=== PATIENT | male | born 1970 | race Two or more races ===

== ENCOUNTER 2022-11-12 14:16 | Emergency (ER) | payer MEDICAID, SELFPAY ==
--- NOTE | ~2022-11-12 | XR_ITS ---
EXAMINATION: XR CHEST CLINICAL INFORMATION: SOB. COMPARISON: None TECHNIQUE: Frontal view of the chest was obtained. FINDINGS: No significant abnormality is noted involving the heart, lungs, mediastinum, bony thorax or soft tissues. XR/XR chest 1V IMPRESSION: Unremarkable chest examination.
[2022-11-12 14:32] VITALS: BP 136/75; PULSE 72; RESP 18; TEMP 36.9; O2SAT 97; BMI 32.6
--- NOTE | 2022-11-12 14:35 | ED.DIZZY ---
HPI - Dizziness General Chief Complaint: Dizziness Stated Complaint: High Blood Pressure Related Data Previous Rx's Medication Instructions Recorded lisinopril 20 mg tablet 20 mg PO DAILY #90 tabs 11/14/22 Allergies Allergy/AdvReac Type Severity Reaction Status Date / Time No Known Allergies Allergy Verified 11/12/22 14:36 [facility] Social History Social History Advance Directives: No Physical Exam Vital Signs: Vital Signs: Last Vital Signs Temp 98.4 F 11/12/22 14:32 Pulse 72 11/12/22 14:32 Resp 18 11/12/22 14:32 BP 136/75 11/12/22 14:32 Pulse Ox 97 11/12/22 14:32 O2 Del Method 11/12/22 14:32 BMI result Body Mass Index 32.6 Course Course Course Narrative: JOSE--52-year-old male with past medical history of hypertension presenting to the ED complaining of intermittent dizziness described as feeling like the room is getting smaller x today. Admits to associated SOB. Admits symptoms resolve when sitting still, occurr when lying flat, denies at present. Denies CP, headache Blood pressure 136/75 and triaged admits to taking his lisinopril this morning. Nontoxic appearing, ending with steady gait EKG, labs, UA, IVF, CXR, orthostatics ordered Medical Decision Making Lab Data 11/12/22 15:21 11/12/22 15:21 Labs: Lab Results 11/12/22 11/12/22 11/12/22 Range/Units 15:21 15:21 15:21 WBC 8.5 (4.8-10.8) X10*3/uL RBC 4.85 (4.60-5.80) X10*6/uL Hgb 14.8 (14.0-18.0) g/dl Hct 44.7 (42.0-52.0) % MCV 92.2 (80.0-98.0) fL MCH 30.5 (27.0-33.0) pg MCHC 33.1 (31.0-36.0) g/dl RDW 13.4 (11.0-16.0) % Plt Count 193 (160-400) X10*3/uL MPV 10.3 (9.4-12.4) fL Immature Gran % (Auto) 0.4 (0.0-0.4) % Neut % (Auto) 65.2 (45-73) % Lymph % (Auto) 16.7 L (20-40) % [place] % (Auto) 11.3 H (2-11) % Eos % (Auto) 5.9 H (0-4) % Baso % (Auto) 0.5 (0-2) % Lymph # (Auto) 1.4 (1.2-4.9) X10*3/uL [place] # (Auto) 1.0 (0.1-1.2) X10*3/uL Eos # (Auto) 0.5 H (0.0-0.4) X10*3/uL Baso # (Auto) 0.0 (0.0-0.2) X10*3/uL Abs Immat Gran (auto) 0.03 (0.00-0.03) X10*3/uL Absolute Neuts (auto) 5.5 (2.0-8.3) x10*3/uL Absolute Nucleated RBC 0.000 (0.0-0.012) X10*3/uL Nucleated RBC % (auto) 0.0 (0.0-0.2) /100WBC Sodium 137 (135-145) mmol/L Potassium 4.4 (3.3-5.1) mmol/L Chloride 105 (96-108) mmol/L Carbon Dioxide 26 (22-29) mmol/L Anion Gap 10 L (12-20) BUN 16 (9-16) mg/dL Creatinine 1.12 (0.5-1.4) mg/dL Estim Creat Clear Calc 87.3 Estimated GFR > 60 Random Glucose 84 (60-115) mg/dL Calcium 9.1 (8.4-10.2) mg/dL Magnesium 2.2 (1.6-2.6) mg/dL Total Bilirubin 0.4 (0.0-1.0) mg/dL Direct Bilirubin < 0.2 (0.0-0.5) mg/dL AST 24 (5-37) U/L ALT 19 (0-40) U/L Alkaline Phosphatase 68 (39-117) U/L Troponin I High Sens < 3.5 (<3.5-35.0) ng/L Total Protein 7.3 (6.5-8.0) g/dL Albumin 4.4 (3.5-5.0) g/dL Urine Color Urine Appearance Urine pH (5.0-9.0) Ur Specific [place] (1.005-1.025) Urine Protein (Neg-Trace) mg/dL Urine Glucose (UA) (Negative) mg/dL Urine Ketones (Negative) mg/dL Urine Blood (Negative) Urine Nitrite (Negative) Ur Leukocyte Esterase (Negative) COVID-19 (SANTANA) (Negative) COVID-19 Clin Com Influenza Type A (JUSTIN) (Negative) Influenza Type B (JUSTIN) (Negative) Influenza A & B Note 11/12/22 11/12/22 11/12/22 Range/Units 15:21 15:21 15:23 WBC (4.8-10.8) X10*3/uL RBC (4.60-5.80) X10*6/uL Hgb (14.0-18.0) g/dl Hct (42.0-52.0) % MCV (80.0-98.0) fL MCH (27.0-33.0) pg MCHC (31.0-36.0) g/dl RDW (11.0-16.0) % Plt Count (160-400) X10*3/uL MPV (9.4-12.4) fL Immature Gran % (Auto) (0.0-0.4) % Neut % (Auto) (45-73) % Lymph % (Auto) (20-40) % [place] % (Auto) (2-11) % Eos % (Auto) (0-4) % Baso % (Auto) (0-2) % Lymph # (Auto) (1.2-4.9) X10*3/uL [place] # (Auto) (0.1-1.2) X10*3/uL Eos # (Auto) (0.0-0.4) X10*3/uL Baso # (Auto) (0.0-0.2) X10*3/uL Abs Immat Gran (auto) (0.00-0.03) X10*3/uL Absolute Neuts (auto) (2.0-8.3) x10*3/uL Absolute Nucleated RBC (0.0-0.012) X10*3/uL Nucleated RBC % (auto) (0.0-0.2) /100WBC Sodium (135-145) mmol/L Potassium (3.3-5.1) mmol/L Chloride (96-108) mmol/L Carbon Dioxide (22-29) mmol/L Anion Gap (12-20) BUN (9-16) mg/dL Creatinine (0.5-1.4) mg/dL Estim Creat Clear Calc Estimated GFR Random Glucose (60-115) mg/dL Calcium (8.4-10.2) mg/dL Magnesium (1.6-2.6) mg/dL Total Bilirubin (0.0-1.0) mg/dL Direct Bilirubin (0.0-0.5) mg/dL AST (5-37) U/L ALT (0-40) U/L Alkaline Phosphatase (39-117) U/L Troponin I High Sens (<3.5-35.0) ng/L Total Protein (6.5-8.0) g/dL Albumin (3.5-5.0) g/dL Urine Color Yellow Urine Appearance Clear Urine pH 6.0 (5.0-9.0) Ur Specific [place] 1.015 (1.005-1.025) Urine Protein Negative (Neg-Trace) mg/dL Urine Glucose (UA) Negative (Negative) mg/dL Urine Ketones Negative (Negative) mg/dL Urine Blood Negative (Negative) Urine Nitrite Negative (Negative) Ur Leukocyte Esterase Negative (Negative) COVID-19 (SANTANA) Negative (Negative) COVID-19 Clin Com See Note Influenza Type A (JUSTIN) Negative (Negative) Influenza Type B (JUSTIN) Negative (Negative) Influenza A & B Note See Note Discharge Plan Discharge Clinical Impression: Dizziness Patient Disposition: Elopement Prescriptions: No Action lisinopril 20 mg tablet 20 mg PO DAILY Qty: 90 0RF Interventions: LWBS Worksheet Last Done: 11/12/22 21:14 Discharge Date/Time: 11/12/22 21:28
--- NOTE | 2022-11-12 14:36 | ECG_ITS ---
Test Reason : DIZZY Blood Pressure : / mmHG Vent. Rate : 067 BPM Atrial Rate : 067 BPM P-R Int : 140 ms QRS Dur : 086 ms QT Int : 386 ms P-R-T Axes : 017 015 002 degrees QTc Int : 407 ms Normal sinus rhythm Normal ECG No previous ECGs available Referred By: Araceli Red Electronically Signed By:ZITA ROD
[2022-11-12 15:28] LABS: MANUAL DIFF FLAG NO
[2022-11-12 15:31] LABS: Appearance Urine Clear; Color Urine Yellow; Glucose Urine UA Negative (Negative); Leukocyte Esterase Urine Negative (Negative); Nitrite Urine Negative (Negative); Specific Gravity - Urine 1.015 (1.005-1.025); Urine Blood Negative (Negative); Urine Ketones Negative (Negative); Urine Protein Negative (Neg-Trace)
[2022-11-12 15:42] LABS: Basophils Percent Auto 0.5 % (0-2); Eosinophils Absolute Auto 0.5 X10*3/uL (0.0-0.4); Eosinophils Percent Auto 5.9 % (0-4); Hematocrit 44.7 % (42.0-52.0); Hemoglobin 14.8 g/dl (14.0-18.0); Imm Gran Abs Auto 0.03 X10*3/uL (0.00-0.03); Imm Gran Pct Auto 0.4 % (0.0-0.4); Lymphocytes Absolute Auto 1.4 X10*3/uL (1.2-4.9); Lymphocytes Percent Auto 16.7 % (20-40); Mean Corpuscular HGB Conc 33.1 g/dl (31.0-36.0); Mean Corpuscular Hemoglobin 30.5 pg (27.0-33.0); Mean Corpuscular Volume 92.2 fL (80.0-98.0); Mean Platelet Volume 10.3 fL (9.4-12.4); Monocytes Percent Auto 11.3 % (2-11); Neutrophils Absolute Auto 5.5 x10*3/uL (2.0-8.3); Neutrophils Percent Auto 65.2 % (45-73); Platelet Count 193 X10*3/uL (160-400); Red Blood Count 4.85 X10*6/uL (4.60-5.80); Red Cell Distribution Width 13.4 % (11.0-16.0); White Blood Count 8.5 X10*3/uL (4.8-10.8)
[2022-11-12 15:50] LABS: COVID-19 Test Negative (Negative); IDNOW Serial# BCCEAD1C
[2022-11-12 15:51] LABS: IDNOW Serial# 9DB6401D; Influenza A Negative (Negative); Influenza B2 Negative (Negative)
[2022-11-12 16:12] LABS: Alanine Aminotransferase 19 U/L (0-40); Albumin Level 4.4 g/dL (3.5-5.0); Alkaline Phosphatase 68 U/L (39-117); Anion Gap 10 (12-20); Aspartate Amino Transferase 24 U/L (5-37); Bilirubin Direct < 0.2 mg/dL (0.0-0.5); Bilirubin Total 0.4 mg/dL (0.0-1.0); Blood Urea Nitrogen 16 mg/dL (9-16); Calcium 9.1 mg/dL (8.4-10.2); Carbon Dioxide 26 mmol/L (22-29); Chloride 105 mmol/L (96-108); Creatinine Clr Calc Pharmacy 87.3; Estimated Glomerular Filt Rate > 60; Glucose Random 84 mg/dL (60-115); Magnesium 2.2 mg/dL (1.6-2.6); Potassium 4.4 mmol/L (3.3-5.1); Sodium 137 mmol/L (135-145); Total Protein 7.3 g/dL (6.5-8.0)
[2022-11-12 16:21] LABS: Troponin-I High Sensitivity < 3.5 ng/L (<3.5-35.0)
== END 2022-11-12 21:28 | disposition left against medical advice (07) ==
LOC: HO.ED 21:17
PROVIDERS: Physician Assistant; Emergency Provider Emergency Medicine
DX: R42 Dizziness and giddiness (principal); I10 Essential (primary) hypertension; Z20.822 Contact with and (suspected) exposure to COVID-19; Z79.899 Other long term (current) drug therapy
CPT/HCPCS: 36415; 71045; 80048; 80076; 81003; 83735; 84484; 85025; 87502; 87635; 93005; 99283

== ENCOUNTER 2022-11-14 10:52 | Emergency (ER) | payer MEDICAID, SELFPAY ==
[2022-11-14 11:45] VITALS: BP 149/105; PULSE 83; RESP 20; TEMP 36.5; O2SAT 95; BMI 35.4
--- NOTE | 2022-11-14 11:45 | ED_ITS ---
HPI - General Adult General Chief complaint: General Medical <Cecily Lai CNP - Last Filed: 11/14/22 11:58> Stated complaint: high bp <Cecily Lai CNP - Last Filed: 11/14/22 11:58> Time Seen by Provider: 11/14/22 12:12 <Cecily Lai CNP - Last Filed: 11/14/22 11:58> Source: patient <MERCY Bolton - Last Filed: 11/14/22 17:16> Mode of arrival: ambulatory <MERCY Bolton - Last Filed: 11/14/22 17:16> Limitations: no limitations <MERCY Bolton Last Filed: 11/14/22 17:16> History of Present Illness HPI narrative: Patient is a 52 year old assigned male at with a history of HTN presenting to the emergency department today requesting a refill of his HTN medication. Patient states that he just moved from [facility] and needs a refill of his HTN medication. Patient states that he takes Lisinopril 20mg. Patient states that he had one episode of dizziness this morning but it resolved quickly. Patient denies any dizziness, lightheadedness, abdominal pain, nausea, vomiting, fever, chills, blurry vision, double vision, loss of vision, chest pain, difficulty breathing, shortness of breath, back pain, night sweats, pain with urination, increased urinary frequency, increased urinary urgency, blood in his urine or stool, syncope or a near syncopal episode, recent trauma or falls, bowel incontinence, bladder incontinence, bowel retention, bladder retention, or any other complaints at this time. <MERCY Bolton - Last Filed: 11/14/22 17:16> Severity: mild <MERCY Bolton - Last Filed: 11/14/22 17:16> Severity scale (1-10): 1 <MERCY Bolton - Last Filed: 11/14/22 17:16> Relieving factors: none <MERCY Bolton Last Filed: 11/14/22 17:16> Exacerbating factors: none <MERCY Bolton Last Filed: 11/14/22 17:16> Associated symptoms: denies other symptoms <MERCY Bolton - Last Filed: 11/14/22 17:16> Treatments prior to arrival: none <MERCY Bolton Last Filed: 11/14/22 17:16> Related Data Home medications: Previous Rx's Medication Instructions Recorded lisinopril 20 mg tablet 20 mg PO DAILY #90 tabs 11/14/22 <Cecily Lai CNP - Last Filed: 11/14/22 11:58> Allergies/adverse reactions: Allergies Allergy/AdvReac Type Severity Reaction Status Date / Time No Known Allergies Allergy Verified 11/12/22 14:36 <Cecily Lai CNP - Last Filed: 11/14/22 11:58> Review of Systems Constitutional: Constitutional: Reports no additional constitutional complaints, Denies chills, Denies fever(s) and Denies night sweats <MERCY Bolton Last Filed: 11/14/22 17:16> Eyes: Eyes: Reports no additional eye complaints, Denies blurry vision, Denies change in vision, Denies diplopia, Denies eye discharge, Denies loss of vision and Denies eye pain <MERCY Bolton - Last Filed: 11/14/22 17:16> ENT: Denies dizziness <MERCY Bolton - Last Filed: 11/14/22 17:16> Cardiovascular: Cardiovascular: Reports no additional cardiovascular complaints, Denies chest pain, Denies lightheadedness, Denies Loss of Consciousness and Denies dyspnea <MERCY Bolton - Last Filed: 11/14/22 17:16> Respiratory: Respiratory: Reports no additional respiratory complaints and Denies dyspnea <MERCY Bolton - Last Filed: 11/14/22 17:16> Gastrointestinal: Gastrointestinal: Reports no additional gastrointestinal complaints, Denies abdominal pain, Denies melena, Denies hematochezia, Denies change in bowel habits and Denies change in stool character <MERCY Bolton - Last Filed: 11/14/22 17:16> Genitourinary: Genitourinary: Reports no additional male genitourinary complaints, Denies hematuria, Denies oliguria, Denies difficulty urinating, Denies dysuria, Denies urinary frequency, Denies urinary hesitancy, Denies urinary incontinence and Denies urinary urgency <MERCY Bolton - Last Filed: 11/14/22 17:16> Musculoskeletal: Musculoskeletal: Reports no additional musculoskeletal complaints, Denies numbness and Denies tingling <MERCY Bolton - Last Filed: 11/14/22 17:16> Neurologic: Denies dizziness, Denies loss of vision, Denies numbness and Denies tingling <MERCY Bolton - Last Filed: 11/14/22 17:16> Psychiatric: Psychiatric: Reports no additional psychiatric complaints <MERCY Bolton - Last Filed: 11/14/22 17:16> Endocrine: Endocrine: Reports no additional endocrine complaints <MERCY Bolton - Last Filed: 11/14/22 17:16> Hematologic/Lymphatic: Hematologic/Lymphatic: Reports no additional hematologic/lymphatic complaints <MERCY Bolton - Last Filed: 11/14/22 17:16> Allergic/Immunologic: Allergic/Immunologic: Reports no additional allergic/immunologic complaints <MERCY Bolton - Last Filed: 11/14/22 17:16> COUNT INCLUDES THE [facility] Past Medical History Attestation statement: The following information was validated with the patient. <MERCY Bolton - Last Filed: 11/14/22 17:16> Source: old records reviewed and nursing notes reviewed <MECRY Bolton - Last Filed: 11/14/22 17:16> Social History Social History: Social History Advance Directives: No <Cecily Lai CNP - Last Filed: 11/14/22 11:58> Physical Exam ED Vital Signs: Vital Signs - 24 hr 11/14/22 11:45 Temperature 97.7 F Pulse Rate 83 Respiratory Rate 20 Blood Pressure 149/105 H Pulse Oximetry 95 Oxygen Delivery Method Room Air BMI result Body Mass Index 35.4 <Cecily Lai CNP - Last Filed: 11/14/22 11:58> Vital Signs - 24 hr 11/14/22 11:45 Temperature 97.7 F Pulse Rate 83 Respiratory Rate 20 Blood Pressure 149/105 H Pulse Oximetry 95 Oxygen Delivery Method Room Air BMI result Body Mass Index 35.4 <MERCY Bolton - Last Filed: 11/14/22 17:16> Const General: cooperative, no acute distress, alert and awake <Shanna Crane PA - Last Filed: 11/14/22 17:16> Nutritional Appearance: well nourished <Shanna Crane PA - Last Filed: 11/14/22 17:16> Orientation/consciousness: patient oriented x3 <Shanna Crane PA - Last Filed: 11/14/22 17:16> Limitations: no limitations <Shanna Crane PA - Last Filed: 11/14/22 17:16> HENMT Head: Yes normal to inspection and Yes atraumatic <Shanna rCane PA - Last Filed: 11/14/22 17:16> Ears: hearing grossly normal bilaterally and external ears normal <Shanna Crane PA - Last Filed: 11/14/22 17:16> General nose exam: Normal external nose present, no nasal discharge noted and no epistaxis <Shanna Crane PA - Last Filed: 11/14/22 17:16> Face and sinus: Yes normal facial exam, No abrasion and No laceration <Shanna Crane PA - Last Filed: 11/14/22 17:16> Mouth: Normal oral and palatal mucosa present, no drooling and no muffled voice <Shanna Crane PA - Last Filed: 11/14/22 17:16> Eyes General: appearance normal, both eyes and all related structures <Shanna Crane PA - Last Filed: 11/14/22 17:16> Periorbital: periorbital findings normal <Shanna Crane PA - Last Filed: 11/14/22 17:16> Eyelids: Yes eyelids normal <Shanna Crane PA - Last Filed: 11/14/22 17:16> Conjunctivae: conjunctivae normal <Shanna Crane PA - Last Filed: 11/14/22 17:16> Pupils: Equal, round and reactive pupils present <Shanna Crane PA - Last Filed: 11/14/22 17:16> EOM: EOMs intact bilaterally <Shanna Crane PA - Last Filed: 11/14/22 17:16> Neck Neck: Yes normal visual inspection, Yes full ROM and Yes no lymphadenopathy <Shanna Crane PA - Last Filed: 11/14/22 17:16> Chest Chest palpation & inspection: normal inspection of the chest <Shanna Crane PA - Last Filed: 11/14/22 17:16> Resp Effort & Inspection: normal respiratory effort and able to speak in complete sentences <Shanna Crane PA - Last Filed: 11/14/22 17:16> Auscultation: clear to auscultation bilaterally <Shanna Crane PA - Last Filed: 11/14/22 17:16> Cardio Rate: regular rate <Shanna Crane PA - Last Filed: 11/14/22 17:16> Rhythm: regular rhythm <Shanna Crane PA - Last Filed: 11/14/22 17:16> GI Inspection: Yes normal to inspection <Shanna Crane PA - Last Filed: 11/14/22 17:16> Palpation (GI): Soft to palpation, not firm, nontender, no guarding and not rigid <Shanna Crane PA - Last Filed: 11/14/22 17:16> Neuro General: patient oriented x3 and moves all extremities <Shanna Craen PA - Last Filed: 11/14/22 17:16> Cranial nerves: Yes Equal, round and reactive pupils present <Shanna Crane PA - Last Filed: 11/14/22 17:16> Cognition (Neuro): normal cognition <Shanna Crane PA - Last Filed: 11/14/22 17:16> Motor exam (neuro): 5/5 motor strength present throughout <Shanna Crane PA - Last Filed: 11/14/22 17:16> Sensory Exam: Normal double simultaneous stimulation for sensation <Shanna Crane PA - Last Filed: 11/14/22 17:16> Coordination: [id number] test normal <Shanna Crane PA - Last Filed: 11/14/22 17:16> Extrem General: Yes normal to inspection, Yes full ROM and Yes capillary refill normal <Shanna Crane PA - Last Filed: 11/14/22 17:16> Psych Appearance: grossly normal <Shanna Mcmahanmarimar PA - Last Filed: 11/14/22 17:16> Mental Status: mental status grossly normal <MERCY Bolton - Last Filed: 11/14/22 17:16> Affect: normal affect <MERCY Bolton - Last Filed: 11/14/22 17:16> Attitude: cooperative <MERCY Bolton - Last Filed: 11/14/22 17:16> Thought process: Normal thought process present <MERCY Bolton - Last Filed: 11/14/22 17:16> Thought content: Normal thought content present <MERCY Bolton - Last Filed: 11/14/22 17:16> Insight: Good insight present (Psych) <MERCY Bolton - Last Filed: 11/14/22 17:16> Course Course Course Narrative: This is an RME: Additional HPI, ROS, PE not included below will be deferred to primary provider. Patient is a 52-year-old male who presents to the emergency department. He reports that he ran out of his blood pressure medication yesterday. States that he came here from [place] 2 months ago. Today he came to the financial assistance office at this hospital to have help with applying for insurance. He states he is prescribed lisinopril 20 mg daily denies any other medications. He expresses concern because this morning upon awakening he felt dizziness, feels dizziness with position changes, and shortness of breath on exertion which is atypical for him. Plan: EKG, Labs, orthostatic VS <Cecily Lai CNP - Last Filed: 11/14/22 11:58> Medical Decision Making Medical Decision Making MDM Narrative: Patient is a 52 year old assigned male at with a history of HTN presenting to the emergency department today requesting a medication refill. Patient's physical exam was unremarkable. Patient's blood work was unremarkable. Patient's EKG was unremarkable. Patient's chest x-ray from 11/12/2022 showed no acute process. I explained my physical exam findings as well as all test results to the patient. I answered all questions asked by the patient. I stressed the importance of the patient taking his medication as prescribed. I stressed the importance of the patient following up with his primary care provider. I stressed the importance of the patient returning to the emergency department immediately if his symptoms were to worsen or if he were to develop any dizziness, shortness of breath, difficulty breathing, chest pain, blurry vision, loss of vision, nausea, vomiting, abdominal pain, fever, chills, back pain, or any other complaints. Patient verbalized agreement and understanding with this treatment plan and discharge. <MERCY Bolton - Last Filed: 11/14/22 17:16> Differential Diagnosis Differential Diagnoses: The differential diagnosis associated with the presentation includes <MERCY Bolton - Last Filed: 11/14/22 17:16> HTN, medication refill, resolved dizziness <MERCY Bolton - Last Filed: 11/14/22 17:16> Lab Data MDM Lab Attestation statement: I reviewed the patient's lab results. <MERCY Bolton - Last Filed: 11/14/22 17:16> Result Diagrams: 11/14/22 12:30 11/14/22 12:30 <Cecily Lai CNP - Last Filed: 11/14/22 11:58> Labs: Lab Results 11/14/22 11/14/22 11/14/22 Range/Units 12:30 12:30 12:30 WBC 8.1 (4.8-10.8) X10*3/uL RBC 4.68 (4.60-5.80) X10*6/uL Hgb 14.4 (14.0-18.0) g/dl Hct 42.3 (42.0-52.0) % MCV 90.4 (80.0-98.0) fL MCH 30.8 (27.0-33.0) pg MCHC 34.0 (31.0-36.0) g/dl RDW 13.5 (11.0-16.0) % Plt Count 210 (160-400) X10*3/uL MPV 10.6 (9.4-12.4) fL Immature Gran % (Auto) 0.4 (0.0-0.4) % Neut % (Auto) 65.7 (45-73) % Lymph % (Auto) 18.8 L (20-40) % Mineral % (Auto) 10.4 (2-11) % Eos % (Auto) 4.3 H (0-4) % Baso % (Auto) 0.4 (0-2) % Lymph # (Auto) 1.5 (1.2-4.9) X10*3/uL [place] # (Auto) 0.8 (0.1-1.2) X10*3/uL Eos # (Auto) 0.4 (0.0-0.4) X10*3/uL Baso # (Auto) 0.0 (0.0-0.2) X10*3/uL Abs Immat Gran (auto) 0.03 (0.00-0.03) X10*3/uL Absolute Neuts (auto) 5.3 (2.0-8.3) x10*3/uL Absolute Nucleated RBC 0.000 (0.0-0.012) X10*3/uL Nucleated RBC % (auto) 0.0 (0.0-0.2) /100WBC Sodium 139 (135-145) mmol/L Potassium 4.4 (3.3-5.1) mmol/L Chloride 106 (96-108) mmol/L Carbon Dioxide 23 (22-29) mmol/L Anion Gap 14 (12-20) BUN 17 H (9-16) mg/dL Creatinine 1.03 (0.5-1.4) mg/dL Estim Creat Clear Calc 83.5 Estimated GFR > 60 Random Glucose 105 (60-115) mg/dL Calcium 9.1 (8.4-10.2) mg/dL Total Bilirubin 0.3 (0.0-1.0) mg/dL AST 26 (5-37) U/L ALT 24 (0-40) U/L Alkaline Phosphatase 70 (39-117) U/L Troponin I High Sens < 3.5 (<3.5-35.0) ng/L Total Protein 7.3 (6.5-8.0) g/dL Albumin 4.5 (3.5-5.0) g/dL <Cecily Lai CNP - Last Filed: 11/14/22 11:58> Lab Results 11/14/22 11/14/22 11/14/22 Range/Units 12:30 12:30 12:30 WBC 8.1 (4.8-10.8) X10*3/uL RBC 4.68 (4.60-5.80) X10*6/uL Hgb 14.4 (14.0-18.0) g/dl Hct 42.3 (42.0-52.0) % MCV 90.4 (80.0-98.0) fL MCH 30.8 (27.0-33.0) pg MCHC 34.0 (31.0-36.0) g/dl RDW 13.5 (11.0-16.0) % Plt Count 210 (160-400) X10*3/uL MPV 10.6 (9.4-12.4) fL Immature Gran % (Auto) 0.4 (0.0-0.4) % Neut % (Auto) 65.7 (45-73) % Lymph % (Auto) 18.8 L (20-40) % Mineral % (Auto) 10.4 (2-11) % Eos % (Auto) 4.3 H (0-4) % Baso % (Auto) 0.4 (0-2) % Lymph # (Auto) 1.5 (1.2-4.9) X10*3/uL Mineral # (Auto) 0.8 (0.1-1.2) X10*3/uL Eos # (Auto) 0.4 (0.0-0.4) X10*3/uL Baso # (Auto) 0.0 (0.0-0.2) X10*3/uL Abs Immat Gran (auto) 0.03 (0.00-0.03) X10*3/uL Absolute Neuts (auto) 5.3 (2.0-8.3) x10*3/uL Absolute Nucleated RBC 0.000 (0.0-0.012) X10*3/uL Nucleated RBC % (auto) 0.0 (0.0-0.2) /100WBC Sodium 139 (135-145) mmol/L Potassium 4.4 (3.3-5.1) mmol/L Chloride 106 (96-108) mmol/L Carbon Dioxide 23 (22-29) mmol/L Anion Gap 14 (12-20) BUN 17 H (9-16) mg/dL Creatinine 1.03 (0.5-1.4) mg/dL Estim Creat Clear Calc 83.5 Estimated GFR > 60 Random Glucose 105 (60-115) mg/dL Calcium 9.1 (8.4-10.2) mg/dL Total Bilirubin 0.3 (0.0-1.0) mg/dL AST 26 (5-37) U/L ALT 24 (0-40) U/L Alkaline Phosphatase 70 (39-117) U/L Troponin I High Sens < 3.5 (<3.5-35.0) ng/L Total Protein 7.3 (6.5-8.0) g/dL Albumin 4.5 (3.5-5.0) g/dL <MERCY Bolton Last Filed: 11/14/22 17:16> Independent Interpretation I performed an independent interpretation of an: EKG <MERCY Bolton Last Filed: 11/14/22 17:16> Interpretation: Vent. Rate: 083 BPM ? ? Atrial Rate: 083 BPM P-R Int: 150 ms? QRS Dur: 086 ms QT Int: 364 ms ? ? ? P-R-T Axes: 060 023 014 degrees QTc Int: 427 ms ? Normal sinus rhythm Normal ECG When compared with ECG of 12-NOV-2022 15:12, No significant change was found DD/ 1215 <MERCY Bolton - Last Filed: 11/14/22 17:16> Radiology Impression Discussion of test interpretation with radiology: I have reviewed the radiologist's reading. <MERCY Bolton - Last Filed: 11/14/22 17:16> Radiologist Impression: My interpretation is in agreement with the radiologist's impression of this imaging study. EXAMINATION: XR CHEST CLINICAL INFORMATION: SOB. COMPARISON: None TECHNIQUE: Frontal view of the chest was obtained. FINDINGS: No significant abnormality is noted involving the heart, lungs, mediastinum, bony thorax or soft tissues. XR/XR chest 1V IMPRESSION: Unremarkable chest examination. ? Dictated By: Law Clark MD Signed By: Electronically signed by Law Clark MD 11/12/22 1637 <MERCY Bolton - Last Filed: 11/14/22 17:16> Chronic Conditions Patient?s care impacted by: Hypertension <MERCY Bolton - Last Filed: 11/14/22 17:16> Social Determinants Patient?s care significantly limited by Social Determinants of Health including: Other Social Determinant of Health (patient recently moved from [facility]) <MERCY Bolton - Last Filed: 11/14/22 17:16> Discharge Plan Discharge Clinical Impression: Hypertension <Cecily Lai CNP - Last Filed: 11/14/22 11:58> Patient Disposition: Home, Self-Care <Cecily Lai CNP - Last Filed: 11/14/22 11:58> Instructions: Hypertension (ED) <Cecily Lai CNP - Last Filed: 11/14/22 11:58> Additional Instructions: Follow up with your primary care provider. Return to the emergency d epartment immediately if your symptoms worsen or if you develop any dizziness, shortness of breath, difficulty breathing, chest pain, blurry vision, loss of vision, nausea, vomiting, abdominal pain, fever, chills, back pain, or any other complaints. Carly un seguimiento con bhatia proveedor de atenci?n primaria. Regrese al departamento de emergencias de inmediato si ovidio s?ntomas empeoran o si presenta mareos, falta de aire, dificultad para respirar, dolor de pecho, visi?n borrosa, p?rdida de la visi?n, n?useas, v?mitos, dolor abdominal, fiebre, escalofr?os, dolor de espalda o cualquier otras quejas. <Cecily Lai CNP - Last Filed: 11/14/22 11:58> Prescriptions: New lisinopril 20 mg tablet 20 mg PO DAILY Qty: 90 0RF <Cecily Lai CNP - Last Filed: 11/14/22 11:58> Referrals: [facility] Family Medicine [Provider Group] (Call to establish and follow up with a primary care provider. Llame para establecer y hacer un seguimiento con un proveedor de atenci?n prima mary.) [facility] Primary Care, [place] [Provider Group] (Call to establish and follow up with a primary care provider. Llame para establecer y hacer un seguimiento con un proveedor de atenci?n primaria. ) [facility] Primary Care,See [Provider Group] (Call to establish and follow up with a primary care provider. Llame para establecer y hacer un seguimiento con un proveedor de atenci?n primaria. ) <Cecily Lai CNP - Last Filed: 11/14/22 11:58> Interventions: ED Discharge Assessment Last Done: 11/14/22 13:19 <Cecily Lai CNP - Last Filed: 11/14/22 11:58> Discharge Date/Time: 11/14/22 13:35 <Cecily Lai CNP - Last Filed: 11/14/22 11:58> Print Language: Tristanian <Cecily Lai CNP - Last Filed: 11/14/22 11:58>
--- NOTE | 2022-11-14 11:57 | ECG_ITS ---
Test Reason : HIGH BLOOD PRESSURE Blood Pressure : / mmHG Vent. Rate : 083 BPM Atrial Rate : 083 BPM P-R Int : 150 ms QRS Dur : 086 ms QT Int : 364 ms P-R-T Axes : 060 023 014 degrees QTc Int : 427 ms Normal sinus rhythm Normal ECG When compared with ECG of 12-NOV-2022 15:12, No significant change was found Referred By: Cecily Lai Electronically Signed By:ZITA ROD
[2022-11-14 12:36] LABS: MANUAL DIFF FLAG NO
[2022-11-14 12:38] LABS: Basophils Percent Auto 0.4 % (0-2); Eosinophils Absolute Auto 0.4 X10*3/uL (0.0-0.4); Eosinophils Percent Auto 4.3 % (0-4); Hematocrit 42.3 % (42.0-52.0); Hemoglobin 14.4 g/dl (14.0-18.0); Imm Gran Abs Auto 0.03 X10*3/uL (0.00-0.03); Imm Gran Pct Auto 0.4 % (0.0-0.4); Lymphocytes Absolute Auto 1.5 X10*3/uL (1.2-4.9); Lymphocytes Percent Auto 18.8 % (20-40); Mean Corpuscular Hemoglobin 30.8 pg (27.0-33.0); Mean Corpuscular Volume 90.4 fL (80.0-98.0); Mean Platelet Volume 10.6 fL (9.4-12.4); Monocytes Absolute Auto 0.8 X10*3/uL (0.1-1.2); Monocytes Percent Auto 10.4 % (2-11); Neutrophils Absolute Auto 5.3 x10*3/uL (2.0-8.3); Neutrophils Percent Auto 65.7 % (45-73); Platelet Count 210 X10*3/uL (160-400); Red Blood Count 4.68 X10*6/uL (4.60-5.80); Red Cell Distribution Width 13.5 % (11.0-16.0); White Blood Count 8.1 X10*3/uL (4.8-10.8)
[2022-11-14 12:54] LABS: Alanine Aminotransferase 24 U/L (0-40); Albumin Level 4.5 g/dL (3.5-5.0); Alkaline Phosphatase 70 U/L (39-117); Anion Gap 14 (12-20); Aspartate Amino Transferase 26 U/L (5-37); Bilirubin Total 0.3 mg/dL (0.0-1.0); Blood Urea Nitrogen 17 mg/dL (9-16); Calcium 9.1 mg/dL (8.4-10.2); Carbon Dioxide 23 mmol/L (22-29); Chloride 106 mmol/L (96-108); Creatinine Clr Calc Pharmacy 83.5; Estimated Glomerular Filt Rate > 60; Glucose Random 105 mg/dL (60-115); Potassium 4.4 mmol/L (3.3-5.1); Sodium 139 mmol/L (135-145); Total Protein 7.3 g/dL (6.5-8.0)
[2022-11-14 13:02] LABS: Troponin-I High Sensitivity < 3.5 ng/L (<3.5-35.0)
== END 2022-11-14 13:35 | disposition home or self-care (01) ==
LOC: HO.ED 13:29
PROVIDERS: Nurse Practitioner Family; Emergency Provider Emergency Medicine
DX: I16.0 Hypertensive urgency (principal); Z76.0 Encounter for issue of repeat prescription; Z79.899 Other long term (current) drug therapy
CPT/HCPCS: 36415; 80053; 84484; 85025; 93005; 99283; 99284

== ENCOUNTER 2022-11-23 12:13 | Emergency (ER) | payer OTHER, SELFPAY ==
[2022-11-23 12:18] VITALS: BP 124/79; PULSE 84; RESP 18; TEMP 36.8; O2SAT 96; BMI 27.3
--- NOTE | 2022-11-23 12:33 | PC.NURSE ---
plan for patient to be discharged home with pain meds and referrals. VSS
--- NOTE | 2022-11-23 12:35 | ED_ITS ---
HPI - General Adult General Chief complaint: Back Pain/Injury Stated complaint: Back pain Time Seen by Provider: 11/23/22 12:34 Source: patient Mode of arrival: ambulatory Limitations: no limitations History of Present Illness HPI narrative: 52 yold male presets to for chronic back pain exacerbation after bending down and picking an object. Patient denies nuasea, vomitting, abdominal pain, fever, chills, urinary/bowel incontinence, recent truama, IV drug use, or immunocomproised diseases Related Data Previous Rx's Medication Instructions Recorded lisinopril 20 mg tablet 20 mg PO DAILY #90 tabs 11/14/22 cyclobenzaprine 10 mg tablet 10 mg PO TID PRN muscle spasm 7 11/23/22 days #21 tabs naproxen 500 mg tablet 500 mg PO BID PRN pain 10 days #20 11/23/22 tabs prednisone 20 mg tablet 40 mg PO DAILY 5 days #10 tabs 11/23/22 Allergies Allergy/AdvReac Type Severity Reaction Status Date / Time No Known Allergies Allergy Verified 11/23/22 12:17 Review of Systems Review of Systems: chronic back pain Yes all other systems are reviewed and are negative [facility] Social History Social History Advance Directives: No Advance Directives Information Provided: No Physical Exam ED Vital Signs: Vital Signs - 24 hr 11/23/22 12:18 Temperature 98.2 F Pulse Rate 84 Respiratory Rate 18 Blood Pressure 124/79 Pulse Oximetry 96 Oxygen Delivery Method Room Air BMI result Body Mass Index 27.3 Const General: cooperative, healthy appearing, comfortable, no acute distress, well developed, alert, awake and Physically active Orientation/consciousness: oriented to time and patient oriented x3 HENMT Head: Yes normal to inspection, Yes No palpable skull fracture present, Yes normocephalic, Yes atraumatic and No abrasion Eyes General: appearance normal, both eyes and all related structures Neck Neck: Yes normal visual inspection, Yes full ROM, Yes no lymphadenopathy, Yes no meningeal signs, Yes trachea midline, Yes supple, No anterior neck swelling and No tender Chest Chest palpation & inspection: normal inspection of the chest and normal palpation of entire chest wall Resp Effort & Inspection: normal respiratory effort and able to speak in complete sentences Cardio Jugular venous distension: no JVD Heart sounds: S1 normal heart sound present and S2 normal heart sound present GI Inspection: Yes normal to inspection and No abdominal wall ecchymosis Palpation (GI): Soft to palpation, not firm, nontender, no guarding and not rigid General: No CVA tenderness and Yes no CVA tenderness Back/Spine/Pelvis Back: no CVA tenderness, No CVA tenderness and back tenderness (muscular back pain) Back/spine/pelvis image: 1. Tenderness on palpation. NO ecchymosis, redness, defofrmity 2. tenderness on palpation. NO ecchmosis, reness, deformity Skin General skin exam: no rashes or lesions noted and elasticity normal Neuro General: oriented to time, patient oriented x3, gait normal, no meningeal signs and CN's II-XI intact bilaterally Cranial nerves: Yes CN's II-XII intact bilaterally Extrem General: Yes normal to inspection and Yes full ROM Psych Appearance: grossly normal, well kempt and not disheveled Course Course Course Narrative: muscular back pain. NO labs or imaging needed. no trauma. Medical Decision Making Medical Decision Making [facility] Narrative: 52 yold male presents for bilateral lower back pain without trauama. patietn is well-appearing. History in phyiscal exam does not indicate spinal fracture, kidney stones, UTI, caudai equina, or epidural abscess. Differential Diagnosis Differential Diagnoses: The differential diagnosis associated with the presentation includes (spinal fracture, caudina equina, or epidural abcess) Admission/Observation no admission/observation Consult Healthcare Provider no consultaiton Radiology Impression Radiologist Impression: no imaging needed Prescription Management I considered prescription management with: Pain Medication (naproxen, cyclobenzaprine, steroinds) Chronic Conditions Patient?s care impacted by: Other (back pain) Discharge Plan Discharge Clinical Impression: Back pain Patient Disposition: Home, Self-Care Instructions: Back Pain (ED), Warm Compress or Soak (ED) Additional Instructions: Se le jessica? de matilda con analg?sicos, relajantes musculares y esteroides. Recomendar limitaci?n de levantamiento pesado y ejercicio. Regrese al servicio de urgencias de inmediato por cualquier incontinencia urinaria o intestinal, n?useas, v?mitos, dolor abdominal, dolor en el costado, fiebre, escalofr?os, dolor testicular, incapacidad para caminar o cualquier otro s?ntoma preocupante. Por favor, krista un seguimiento con el proveedor de atenci?n primaria. Prescriptions: New naproxen 500 mg tablet 500 mg PO BID PRN (Reason: pain) 10 Days Qty: 20 0RF cyclobenzaprine 10 mg tablet 10 mg PO TID PRN (Reason: muscle spasm) 7 Days Qty: 21 0RF Rx Instructions: side effect is drowsiness. DO not take at work or while driving. prednisone 20 mg tablet 40 mg PO DAILY 5 Days Qty: 10 0RF No Action lisinopril 20 mg tablet 20 mg PO DAILY Qty: 90 0RF Discharge Date/Time: 11/23/22 12:44 Print Language: Qatari
== END 2022-11-23 12:44 | disposition home or self-care (01) ==
PROVIDERS: Emergency Provider Emergency Medicine
DX: M54.50 Low back pain, unspecified (principal); M54.2 Cervicalgia; Z79.899 Other long term (current) drug therapy
CPT/HCPCS: 99281; 99283

== ENCOUNTER 2022-11-25 09:25 | Emergency (ER) | payer OTHER, SELFPAY ==
--- NOTE | ~2022-11-25 | XR_ITS ---
EXAMINATION: XR LUMBOSACRAL SPINE CLINICAL INFORMATION: Low back pain. COMPARISON: None TECHNIQUE: Three views of the lumbosacral spine. FINDINGS: Mild multilevel degenerative changes are seen with disc space narrowing and marginal osteophyte formation. The vertebral bodies are intact. There is no acute fracture. The soft tissues are unremarkable. XR/XR lumbar spine 2-3V IMPRESSION: Mild multilevel degenerative disc disease. No acute fracture.
[2022-11-25 10:08] VITALS: BP 122/87; PULSE 84; RESP 18; TEMP 36.4; O2SAT 97; BMI 36.5
[2022-11-25] MEDS: traMADoL HCL 50 MG TABLET PO (11:41)
[2022-11-25 11:43] VITALS: BP 118/74; PULSE 74; RESP 18; TEMP 36.7; O2SAT 97
--- NOTE | 2022-11-25 11:43 | ED.BACK ---
HPI - Back Pain/Injury General Chief Complaint: Back Pain/Injury Stated Complaint: Back pain Time Seen by Provider: 11/25/22 10:15 Source: patient Mode of arrival: ambulatory History of Present Illness HPI Narrative: 52-year-old male with no significant past medical history presenting to the ED complaining of acute on chronic low back pain radiating down left lower extremity x few days. Reports associated paresthesias. Patient was seen and treated in our ED on Thursday, prescribed prednisone, Flexeril, and naproxen without relief. Denies known injury, trauma, fall, weakness, urinary incontinence/retention, IVDA. MD elicited complaint: back pain Pertinent past history: prior back pain Onset (ago): day(s) Related Data Previous Rx's Medication Instructions Recorded lisinopril 20 mg tablet 20 mg PO DAILY #90 tabs 11/14/22 cyclobenzaprine 10 mg tablet 10 mg PO TID PRN muscle spasm 7 11/23/22 days #21 tabs naproxen 500 mg tablet 500 mg PO BID PRN pain 10 days #20 11/23/22 tabs prednisone 20 mg tablet 40 mg PO DAILY 5 days #10 tabs 11/23/22 Allergies Allergy/AdvReac Type Severity Reaction Status Date / Time No Known Allergies Allergy Verified 11/25/22 10:08 Review of Systems Review of Systems: Constitutional: No Fever, No Chills ENT/Mouth: No Ear Pain, No Nasal Congestion, No Sinus Pain, No Hoarseness, No sore throat, No Rhinorrhea, No Swallowing Difficulty Cardiovascular: No Chest Pain, No SOB Respiratory: No Cough, No Sputum Gastrointestinal: No Nausea, No Vomiting, No Abdominal pain Genitourinary: No Dysuria, No Urinary Frequency, No Hematuria, No Urinary Incontinence/retention, No Urgency, No Flank Pain Musculoskeletal: + joint pain, No Myalgias, No Joint Swelling Skin: No Skin Lesions, No rash Neuro: No Weakness, No Numbness, + Paresthesias Yes all other systems are reviewed and are negative Constitutional: Constitutional: Reports as per HPI Neurologic: Denies Sensory deficit (Neuro) [facility] Past Medical History Attestation statement: The following information was validated with the patient. Social History Social History Alcohol intake: never Smoked in Last 30 Days: No Advance Directives: No Advance Directives Information Provided: No Physical Exam Vital Signs: Vital Signs: Last Vital Signs Temp 98.0 F 11/25/22 11:43 Pulse 74 11/25/22 11:43 Resp 18 11/25/22 11:43 BP 118/74 11/25/22 11:43 Pulse Ox 97 11/25/22 11:43 O2 Del Method 11/25/22 11:43 BMI result Body Mass Index 36.5 Const: General: cooperative, healthy appearing and no acute distress Orientation/consciousness: patient oriented x3 Limitations: no limitations HEENT: Head: Yes normal to inspection and Yes atraumatic Ears: hearing grossly normal bilaterally General nose exam: Normal external nose present Face and sinus: Yes normal facial exam Eyes: General: appearance normal, both eyes and all related structures EOM: EOMs intact bilaterally Neck: Neck: Yes normal visual inspection and Yes no meningeal signs Resp: Effort & Inspection: normal respiratory effort and no respiratory distress Cardio: Rate: regular rate GI: Inspection: Yes normal to inspection Palpation (GI): Soft to palpation, nontender, no guarding and not rigid : General: Yes no CVA tenderness Back/Spine/Pelvis: Other: No midline thoracic/lumbar spinous tenderness/step-off or deformity. + left-sided lumbar paraspinal tenderness to palpation with palpable muscle spasming Back: no CVA tenderness Skin: Rashes: no rashes Wounds: no wounds Neuro: Other: Strength intact throughout. No saddle anesthesia. Sensation intact to light touch. Neurovascular intact distally General: patient oriented x3, gait normal, tone normal, moves all extremities, no meningeal signs and no focal motor deficits Gait exam (Neuro): Normal gait present Motor exam (neuro): 5/5 motor strength present throughout Sensory Exam: No Sensory deficit (Neuro) Extrem: General: Yes normal to inspection Course Course Course Narrative: 1200--XR lumbar spine 2-3V IMPRESSION: Mild multilevel degenerative disc disease. No acute fracture. ? Results discussed with patient including worrisome signs and symptoms and strict return precautions, and when to return to the emergency department. They verbalized understanding and feel safe for discharge at this time. Medications Administered Discontinued Medications Generic Name Dose Route Start Last Admin Trade Name Freq PRN Reason Stop Dose Admin Tramadol HCl 50 mg 11/25/22 11:12 11/25/22 11:41 Tramadol Hcl 50 Mg Tablet PO 11/25/22 11:13 50 mg ONCE ONE Administration Medical Decision Making Medical Decision Making MDM Narrative: 52-year-old male with no significant past medical history presenting to the ED complaining of acute on chronic low back pain radiating down left lower extremity x few days. On exam vital signs stable, NAD, nontoxic appearing, no midline spinous tenderness throughout or red flag symptoms. Left-sided paraspinal tenderness elicited. Ambulating with steady gait. Concern for MSK pain/strain and sciatica. Low suspicion for cauda equina, cord compression, epidural abscess. No evidence for infection or rash Will obtain x-rays and add tramadol to regimen Please refer to course for remaining clinical decision making, interpretation of labs/imaging results, and discussions with consultants and/or family members. Differential Diagnosis Differential Diagnoses: The differential diagnosis associated with the presentation includes As above Independent Interpretation I performed an independent interpretation of an: Plain X-Ray Radiology Impression Discussion of test interpretation with radiology: I have reviewed the radiologist's reading. External Record Review Prior ED record Prescription Management I considered prescription management with: Pain Medication Discharge Plan Discharge Clinical Impression: Lumbar radiculopathy Patient Disposition: Home, Self-Care Instructions: Lumbar Radiculopathy (ED) Additional Instructions: Continue taking previously prescribed medications, in addition start taking tramadol which is an opiate pain medication only for the next [address], drink alcohol, or operate machinery while taking tramadol. 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 No conduzca, bam alcohol ni opere maquinaria mientras cholo tramadol. Los parches de Lidoderm son parches anest?sicos, se aplican en el ?connor dolorida Adem?s cholo Tylenol en casa Si los s?ntomas persisten o empeoran, el dolor se vuelve insoportable, desarroll? retenci?n urinaria o incontinencia, o debilidad, regrese al servicio de urgencias. Prescriptions: No Action lisinopril 20 mg tablet 20 mg PO DAILY Qty: 90 0RF naproxen 500 mg tablet 500 mg PO BID PRN (Reason: pain) 10 Days Qty: 20 0RF cyclobenzaprine 10 mg tablet 10 mg PO TID PRN (Reason: muscle spasm) 7 Days Qty: 21 0RF Rx Instructions: side effect is drowsiness. DO not take at work or while driving. prednisone 20 mg tablet 40 mg PO DAILY 5 Days Qty: 10 0RF Referrals: Physician,None [Primary Care Provider] - 3 days Print Language: Hebrew
== END 2022-11-25 12:31 | disposition home or self-care (01) ==
PROVIDERS: Emergency Provider Emergency Medicine
DX: M54.16 Radiculopathy, lumbar region (principal); Z79.899 Other long term (current) drug therapy
CPT/HCPCS: 72100; 99283; 99284

== ENCOUNTER 2022-12-02 18:54 | Emergency (ER) | payer OTHER, SELFPAY ==
--- NOTE | ~2022-12-02 | XR_ITS ---
EXAMINATION: XR CHEST CLINICAL INFORMATION: Left-sided chest pain COMPARISON: Chest x-ray on 11/12/2022 TECHNIQUE: 2 views of the chest were obtained. FINDINGS: No significant abnormality is noted involving the heart, lungs, mediastinum, bony thorax or soft tissues. XR/XR chest 2V IMPRESSION: Unremarkable examination.
[2022-12-02 18:57] VITALS: BP 150/87; PULSE 100; RESP 16; TEMP 36.6; O2SAT 97; BMI 36.5
--- NOTE | 2022-12-02 19:01 | ED.CHESTPAIN ---
HPI - Chest Pain General Chief Complaint: Chest Pain Stated Complaint: chest pain going into abd Time Seen by Provider: 12/03/22 02:01 Related Data Previous Rx's Medication Instructions Recorded lisinopril 20 mg tablet 20 mg PO DAILY #90 tabs 11/14/22 cyclobenzaprine 10 mg tablet 10 mg PO TID PRN muscle spasm 7 11/23/22 days #21 tabs naproxen 500 mg tablet 500 mg PO BID PRN pain 10 days #20 11/23/22 tabs prednisone 20 mg tablet 40 mg PO DAILY 5 days #10 tabs 11/23/22 tramadol 50 mg tablet 50 mg PO Q8H PRN pain, severe #9 11/25/22 tabs Allergies Allergy/AdvReac Type Severity Reaction Status Date / Time No Known Allergies Allergy Verified 11/25/22 10:08 [facility] Social History Social History Alcohol intake: never Advance Directives: No Advance Directives Information Provided: Yes Physical Exam Vital Signs: Vital Signs: Last Vital Signs Temp 97.9 F 12/02/22 18:57 Pulse 100 12/02/22 18:57 Resp 16 12/02/22 18:57 BP 150/87 H 12/02/22 18:57 Pulse Ox 97 12/02/22 18:57 O2 Del Method 12/02/22 18:57 BMI result Body Mass Index 36.5 Course Course Course Narrative: JOSE Mcgregor 52 yo presents to the ER with left sided chest pain and left sided abdominal pain that started today when he was at home. Reports chronic pain after a fall years ago. Pain is worse with movement of the left upper extremity. No SOB. Cough produces pain in LUQ. Medical Decision Making Lab Data 12/02/22 19:29 12/02/22 19:29 Labs: Lab Results 12/02/22 12/02/22 12/02/22 Range/Units 19:29 19:29 19:29 WBC 8.6 (4.8-10.8) X10*3/uL RBC 4.51 L (4.60-5.80) X10*6/uL Hgb 13.9 L (14.0-18.0) g/dl Hct 41.7 L (42.0-52.0) % MCV 92.5 (80.0-98.0) fL MCH 30.8 (27.0-33.0) pg MCHC 33.3 (31.0-36.0) g/dl RDW 13.4 (11.0-16.0) % Plt Count 190 (160-400) X10*3/uL MPV 10.4 (9.4-12.4) fL Immature Gran % (Auto) 0.3 (0.0-0.4) % Neut % (Auto) 74.3 H (45-73) % Lymph % (Auto) 13.8 L (20-40) % [place] % (Auto) 8.3 (2-11) % Eos % (Auto) 3.0 (0-4) % Baso % (Auto) 0.3 (0-2) % Lymph # (Auto) 1.2 (1.2-4.9) X10*3/uL [place] # (Auto) 0.7 (0.1-1.2) X10*3/uL Eos # (Auto) 0.3 (0.0-0.4) X10*3/uL Baso # (Auto) 0.0 (0.0-0.2) X10*3/uL Abs Immat Gran (auto) 0.03 (0.00-0.03) X10*3/uL Absolute Neuts (auto) 6.4 (2.0-8.3) x10*3/uL Absolute Nucleated RBC 0.000 (0.0-0.012) X10*3/uL Nucleated RBC % (auto) 0.0 (0.0-0.2) /100WBC Sodium 140 (135-145) mmol/L Potassium 5.0 (3.3-5.1) mmol/L Chloride 105 (96-108) mmol/L Carbon Dioxide 26 (22-29) mmol/L Anion Gap 14 (12-20) BUN 16 (9-16) mg/dL Creatinine 1.31 (0.5-1.4) mg/dL Estim Creat Clear Calc 66.7 Estimated GFR 57 Random Glucose 100 (60-115) mg/dL Calcium 8.8 (8.4-10.2) mg/dL Magnesium 2.2 (1.6-2.6) mg/dL Total Bilirubin 0.2 (0.0-1.0) mg/dL Direct Bilirubin < 0.2 (0.0-0.5) mg/dL AST 31 (5-37) U/L ALT 30 (0-40) U/L Alkaline Phosphatase 71 (39-117) U/L Troponin I High Sens (<3.5-35.0) ng/L Total Protein 6.9 (6.5-8.0) g/dL Albumin 4.2 (3.5-5.0) g/dL Lipase 24 (8-78) U/L COVID-19 ([facility]) Negative (Negative) COVID-19 Clin Com See Note Influenza Type A ([facility]IN) (Negative) Influenza Type B (JUSTIN) (Negative) Influenza A & B Note 12/02/22 12/02/22 Range/Units 19:29 19:29 WBC (4.8-10.8) X10*3/uL RBC (4.60-5.80) X10*6/uL Hgb (14.0-18.0) g/dl Hct (42.0-52.0) % MCV (80.0-98.0) fL MCH (27.0-33.0) pg MCHC (31.0-36.0) g/dl RDW (11.0-16.0) % Plt Count (160-400) X10*3/uL MPV (9.4-12.4) fL Immature Gran % (Auto) (0.0-0.4) % Neut % (Auto) (45-73) % Lymph % (Auto) (20-40) % [place] % (Auto) (2-11) % Eos % (Auto) (0-4) % Baso % (Auto) (0-2) % Lymph # (Auto) (1.2-4.9) X10*3/uL [place] # (Auto) (0.1-1.2) X10*3/uL Eos # (Auto) (0.0-0.4) X10*3/uL Baso # (Auto) (0.0-0.2) X10*3/uL Abs Immat Gran (auto) (0.00-0.03) X10*3/uL Absolute Neuts (auto) (2.0-8.3) x10*3/uL Absolute Nucleated RBC (0.0-0.012) X10*3/uL Nucleated RBC % (auto) (0.0-0.2) /100WBC Sodium (135-145) mmol/L Potassium (3.3-5.1) mmol/L Chloride (96-108) mmol/L Carbon Dioxide (22-29) mmol/L Anion Gap (12-20) BUN (9-16) mg/dL Creatinine (0.5-1.4) mg/dL Estim Creat Clear Calc Estimated GFR Random Glucose (60-115) mg/dL Calcium (8.4-10.2) mg/dL Magnesium (1.6-2.6) mg/dL Total Bilirubin (0.0-1.0) mg/dL Direct Bilirubin (0.0-0.5) mg/dL AST (5-37) U/L ALT (0-40) U/L Alkaline Phosphatase (39-117) U/L Troponin I High Sens < 3.5 (<3.5-35.0) ng/L Total Protein (6.5-8.0) g/dL Albumin (3.5-5.0) g/dL Lipase (8-78) U/L COVID-19 ([facility]) (Negative) COVID-19 Clin Com Influenza Type A (JUSTIN) Negative (Negative) Influenza Type B ([facility]IN) Negative (Negative) Influenza A & B Note See Note Discharge Plan Discharge Prescriptions: No Action lisinopril 20 mg tablet 20 mg PO DAILY Qty: 90 0RF naproxen 500 mg tablet 500 mg PO BID PRN (Reason: pain) 10 Days Qty: 20 0RF cyclobenzaprine 10 mg tablet 10 mg PO TID PRN (Reason: muscle spasm) 7 Days Qty: 21 0RF Rx Instructions: side effect is drowsiness. DO not take at work or while driving. prednisone 20 mg tablet 40 mg PO DAILY 5 Days Qty: 10 0RF tramadol 50 mg tablet 50 mg PO Q8H PRN (Reason: pain, severe) Qty: 9 0RF
--- NOTE | 2022-12-02 19:02 | ECG_ITS ---
Test Reason : CHEST PAIN Blood Pressure : / mmHG Vent. Rate : 086 BPM Atrial Rate : 086 BPM P-R Int : 158 ms QRS Dur : 086 ms QT Int : 354 ms P-R-T Axes : 045 028 005 degrees QTc Int : 423 ms Sinus rhythm with occasional Premature ventricular complexes Otherwise normal ECG When compared with ECG of 14-NOV-2022 12:15, Premature ventricular complexes are now Present Referred By: Cate Mandujano Electronically Signed By:ZITA ROD
[2022-12-02 19:34] LABS: MANUAL DIFF FLAG NO
[2022-12-02 19:35] LABS: Basophils Percent Auto 0.3 % (0-2); Eosinophils Absolute Auto 0.3 X10*3/uL (0.0-0.4); Hematocrit 41.7 % (42.0-52.0); Hemoglobin 13.9 g/dl (14.0-18.0); Imm Gran Abs Auto 0.03 X10*3/uL (0.00-0.03); Imm Gran Pct Auto 0.3 % (0.0-0.4); Lymphocytes Absolute Auto 1.2 X10*3/uL (1.2-4.9); Lymphocytes Percent Auto 13.8 % (20-40); Mean Corpuscular HGB Conc 33.3 g/dl (31.0-36.0); Mean Corpuscular Hemoglobin 30.8 pg (27.0-33.0); Mean Corpuscular Volume 92.5 fL (80.0-98.0); Mean Platelet Volume 10.4 fL (9.4-12.4); Monocytes Absolute Auto 0.7 X10*3/uL (0.1-1.2); Monocytes Percent Auto 8.3 % (2-11); Neutrophils Absolute Auto 6.4 x10*3/uL (2.0-8.3); Neutrophils Percent Auto 74.3 % (45-73); Platelet Count 190 X10*3/uL (160-400); Red Blood Count 4.51 X10*6/uL (4.60-5.80); Red Cell Distribution Width 13.4 % (11.0-16.0); White Blood Count 8.6 X10*3/uL (4.8-10.8)
[2022-12-02 19:52] LABS: COVID-19 Test Negative (Negative); IDNOW Serial# 16C4AD1C; IDNOW Serial# BCCEAD1C; Influenza A Negative (Negative); Influenza B2 Negative (Negative)
[2022-12-02 20:01] LABS: Alanine Aminotransferase 30 U/L (0-40); Albumin Level 4.2 g/dL (3.5-5.0); Alkaline Phosphatase 71 U/L (39-117); Anion Gap 14 (12-20); Aspartate Amino Transferase 31 U/L (5-37); Bilirubin Direct < 0.2 mg/dL (0.0-0.5); Bilirubin Total 0.2 mg/dL (0.0-1.0); Blood Urea Nitrogen 16 mg/dL (9-16); Calcium 8.8 mg/dL (8.4-10.2); Carbon Dioxide 26 mmol/L (22-29); Chloride 105 mmol/L (96-108); Creatinine Clr Calc Pharmacy 66.7; Estimated Glomerular Filt Rate 57; Glucose Random 100 mg/dL (60-115); Lipase 24 U/L (8-78); Magnesium 2.2 mg/dL (1.6-2.6); Sodium 140 mmol/L (135-145); Total Protein 6.9 g/dL (6.5-8.0)
[2022-12-02 20:12] LABS: Troponin-I High Sensitivity < 3.5 ng/L (<3.5-35.0)
--- NOTE | 2022-12-03 02:03 | PC.NURSE ---
pt eloped for the 2nd time. pt was in his room and just left.
== END 2022-12-03 02:04 | disposition left against medical advice (07) ==
PROVIDERS: Physician Assistant; Emergency Provider Internal Medicine
DX: R07.89 Other chest pain (principal); Z20.822 Contact with and (suspected) exposure to COVID-19; Z20.828 Contact with and (suspected) exposure to other viral communicable diseases; Z79.899 Other long term (current) drug therapy
CPT/HCPCS: 71046; 80048; 80076; 83690; 83735; 84484; 85025; 87502; 87635; 93005; 99283